=== PATIENT | male | born 1960 | race Caucasian/White ===

== ENCOUNTER 2024-12-05 07:08 | Inpatient (IN) | payer BC ==
[~2024-12-05] VITALS: Ht 172.7 cm; Wt 90.9 kg
--- NOTE | 2024-12-05 07:23 | ELECTROCARDIOGRAPH REPORT ---
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
--- NOTE | 2024-12-05 07:40 | Physician Documentation ---
History of Present Illness General Chief Complaint: Irregular Heartbeat Stated Complaint: AFIB Time Seen by MD: 07:39 History of Present Illness Initial Comments The patient is a 64-year-old male presents to the emergency department with weakness and shortness of breath over last five days. Patient states he has also had palpitations. He was informed a week ago that is gone into atrial fibrillation. Patient states he has a heart attack one year ago and had two stents placed. He states he has a loop recorder and he was called by Dr. Claire on Saturday and told he was in atrial fibrillation. The patient states he started Eliquis on Saturday of this week. The patient presents to the emergency room today with a complaint of shortness of breath and weakness. He d enies any chest pain. Patient denies any fevers chills nausea or vomiting. Patient denies any history of atrial fibrillation. Medication Reconciliation Allergies: Coded Allergies: ibuprofen (Verified Allergy, Unknown, 12/05/24) Scheduled Apixaban (Eliquis), 1 TAB PO BID, (Reported) Aspirin (Aspirin), 1 TAB PO DAILY, (Reported) Atorvastatin Calcium (Atorvastatin Calcium), 1 TAB PO DAILY, (Reported) Carvedilol (Carvedilol), 1 TAB PO BID, (Reported) Escitalopram Oxalate (Escitalopram Oxalate), 1 TAB PO DAILY, (Reported) Evolocumab (Repatha Sureclick), SQ Q2W, (Reported) Spironolactone (Aldactone), 1 TAB PO DAILY, (Reported) Scheduled PRN Zolpidem Tartrate (Zolpidem Tartrate), 1 TAB PO HS PRN for insomnia, (Reported) Past Medical History Past Medical History: Atrial Fibrillation, Coronary Artery Disease Review of Systems All Other Systems at this time: Reviewed and Negative Physical Exam Physical Exam Vital Signs: Temperature: 98.4, Heart Rate: 143, Respiratory Rate: 18, BP: 164/143, Pulse Oximetry: 94, Weight: 90.910 Oxygen Flow Rate: 0 Physical Exam VITALS: Reviewed and as above. GENERAL: Alert, no apparent distress. HEENT: Normocephalic, atraumatic, PERRL, EOMI, dry mucosa, no erythema RESPIRATORY: Lungs clear, normal breath sounds, no respiratory distress. CHEST: No accessory muscle use, no retractions CV: Tachycardic rate and rhythm irregularly irregular, no edema, no murmur, No: JVD GI: Soft, non-tender, bowels sounds present, no rebound, guarding, or rigidity BACK: No CVA tenderness, or swelling MUSCULOSKELETAL: No deformities, no edema SKIN: Warm and dry, no rash NEURO: Oriented x4, No motor or sensory deficit PSYCH: Normal mood and affect, no agitation Progress Results/Orders Results/Orders Orders - DAGOBERTO VALENTE MD Chest,Single View (12/05/24 07:21) Monitor (12/05/24 07:21) Saline Lock (12/05/24 07:21) Oxygen (12/05/24 07:21) Page Hospitalist (12/05/24 ) Completed Orders - DAGOBERTO VALENTE MD Chest,Single View (12/05/24 07:21) Cbc/Diff (12/05/24 07:21) BMP (12/05/24 07:21) PBNP (12/05/24 07:21) Electrocardiogram (12/05/24 07:21) Hs Troponin I W Calculations (12/05/24 07:21) Hs Troponin I W Calculations (12/05/24 09:21) Hs Troponin I W Calculations (12/05/24 10:21) Diltiazem Iv (Cardizem Iv 5mg/Ml Inj.) (12/05/24 07:55) Magnesium Sulf-Water 2g/50ml (Magnesium (12/05/24 07:55) Diltiazem Tablet (Cardizem Tablet) (12/05/24 08:00) Diltiazem Tablet (Cardizem Tablet) (12/05/24 08:40) Normal Saline 500ml Iv Soln (Sodium Chlo (12/05/24 08:40) Diltiazem-Ns 100mg/100ml (Cardizem-Ns 10 (12/05/24 09:35) Hgb A1c (12/05/24 07:28) MG (12/05/24 07:28) PHOS (12/05/24 07:28) TSH (12/05/24 07:28) Vital Signs 12/05/24 12/05/24 12/05/24 12/05/24 07:21 07:37 07:45 08:00 Temp 98.4 Pulse 143 122 127 Resp 18 16 18 B/P (MAP) 164/143 96/66 (76) 94/51 Pulse Ox 94 O2 Flow Rate 0 12/05/24 12/05/24 12/05/24 12/05/24 08:15 08:55 09:35 09:55 Temp 98.4 Pulse 91 82 116 101 Resp 19 16 16 B/P (MAP) 93/57 (69) 90/61 (71) 92/76 98/73 (81) Pulse Ox 93 92 98 O2 Flow Rate 0 0 0 Laboratory Tests Test 12/05/24 07:28 12/05/24 08:53 White Blood Count 13.2 H Red Blood Count 5.63 Hemoglobin 17.9 Hematocrit 53.9 H Mean Corpuscular Volume 95.8 Mean Corpuscular Hemoglobin 31.9 H Mean Corpuscular Hemoglobin Concent 33.3 Red Cell Distribution Width 14.7 H Platelet Count 211 Mean Platelet Volume 9.9 Neutrophils (%) (Auto) 73.6 Lymphocytes (%) (Auto) 15.3 L Monocytes (%) (Auto) 10.0 Eosinophils (%) (Auto) 0.5 Basophils (%) (Auto) 0.6 Neutrophils # (Auto) 9.7 H Lymphocytes # (Auto) 2.0 Monocytes # (Auto) 1.3 H Eosinophils # (Auto) 0.1 Basophils # (Auto) 0.1 CBC Comment Sodium Level 136 Potassium Level 4.7 Chloride Level 105 Carbon Dioxide Level 25.3 Anion Gap 6 L Blood Urea Nitrogen 21 H Creatinine 1.49 H Estimated GFR/1.73 m2 47 BUN/Creatinine Ratio 14.1 Glucose Level 96 Hemoglobin A1c 5.0 Calcium Level 8.4 L Phosphorus Level 2.8 Magnesium Level 2.2 Troponin I High Sensitivity 25 23 Pro-B-Type Natriuretic Peptide 4534 H Albumin 3.3 L Thyroid Stimulating Hormone (TSH) 7.09 H Chemistry Comments Troponin I High Sens Percent Delta 8 Troponin I Hi Sens Absolute Change -2 EKG/XRAY/CT/US/VASC/MRI Chest X-Ray : Additional Comments Patient: MARIXA DIAZ Medical Record: [id number] [facility] : 1960, Age: 64 Sex: Male Location: ER Patient Status: REG ER Service Date/Time: 12/05/24720 Ordering Physician: DAGOBERTO VALENTE MD Exam: CHEST,SINGLE VIEW CHEST RADIOGRAPH Indication: CP Technique: DI CHEST,SINGLE VIEW COMPARISON: None FINDINGS: The cardiac silhouette is enlarged. The lungs demonstrate bilateral patchy airspace opacities. The pulmonary vasculature is prominent. Small left pleural effusion. There is no pneumothorax. Cardiac recording device. IMPRESSION: Cardiomegaly with pulmonary vascular congestion and bilateral patchy airspace opacities. Small left pleural effusion. Electronically Signed by:SONIA LORENZO MD Date & Time: 12/05/24746 Dictated by: SONIA LORENZO MD Dictation date and time: 12/05/24730 Primary Care Provider: NO PRIMARY CARE PROVIDER cc: DAGOBERTO VALENTE MD ~ Medical Decision Making Findings The the patient's EKG was interpreted as atrial fibrillation with a rate of 151 with a normal axis and Q-waves in V1 through V five with nonspecific ST abnormalities impression is an abnormal EKG. The patient presented with a week's worth of atrial fibrillation the patient has a rapid atrial fibrillation he was started on Cardizem his blood pressure was 90 systolic given this finding I gave the patient some IV fluids we continued to struggle with low blood pre ssures and limited success with rate control the patient was discussed with the care transitions manager who has recommended loading the patient with amiodarone and also digoxin. The patient does have congestive changes on his chest x-ray consistent with pulmonary edema related to his atrial fibrillation the patient does have a history of would sounds like an apical IN in the past. The patient did require critical care time the patient will be admitted to the hospitalist case has been discussed with the hospitalist. Prior hospitalizations have been reviewed the pulse oximetry was interpreted as abnormal and low and is cardiac 100 was interpreted as atrial fibrillation Departure Admitted to Inpatient Unit: yes, to hospitalist Impression: Primary Impression: Atrial fibrillation Qualified Codes: I48.19 - Other persistent atrial fibrillation Referrals: NO PRIMARY CARE PROVIDER (PCP) Critical Care Note Total Time (mins): 90 Critical Care Note The very real possibility of a deterioration of this patient's condition required the highest level of my preparedness for sudden, emergent intervention. I provided critical care services, which included medication orders, frequent reevaluations of the patient's condition and response to treatment, ordering and reviewing test results, and discussing the case with various consultants. Excludes time spent performing separately billable procedures. The critical care time associated with the care of the patient was 90 minutes. Signature Scribe Signature: No scribe Attestation: The note accurately reflects work and decisions made by me.Dagoberto Valente MD 12/07/24 03:46 DAGOBERTO VALENTE MD Dec 05, 2024 07:40
--- NOTE | 2024-12-05 07:47 | RADIOLOGY REPORT ---
CHEST RADIOGRAPH Indication: CP Technique: DI CHEST,SINGLE VIEW COMPARISON: None FINDINGS: The cardiac silhouette is enlarged. The lungs demonstrate bilateral patchy airspace opacities. The pu lmonary vasculature is prominent. Small left pleural effusion. There is no pneumothorax. Cardiac ernie rding device. IMPRESSION: Cardiomegaly with pulmonary vascular congestion and bilateral patchy airspace opacities. Small left pleural effusion.
[2024-12-05 07:53] LABS: MEAN PLATELET VOLUME 9.9 FL (7.4-10.4); RED CELL DISTRIBUTION WIDTH 14.7 % (11.5-14.5)
[2024-12-05] MEDS: diltiazem 5mg/ml 5ml inj. IV ONE (08:00)
[2024-12-05] MEDS: magnesium sulf-water 2g/50mL 50 ML IV ONE (08:00)
[2024-12-05] MEDS ORDERED: diltiazem 30mg tablet PO ONE (08:00)
[2024-12-05 08:15] LABS: CREATININE 1.49 MG/DL (0.60-1.10); PRO BRAIN NATRIURETIC PEPTIDE 4534 PG/ML (0-125); TOTAL CARBON DIOXIDE 25.3 MMOL/L (24-32); eCRCL 48 ML/MIN; eGFR 47 ML/MIN
[2024-12-05] MEDS: diltiazem 30mg tablet PO ONE ×2 (08:40→11:19)
[2024-12-05] MEDS: normal saline 500ml IV soln 500 ML IV SCH (08:52)
[2024-12-05] MEDS: diltiazem-NS 100mg/100ml 100 ML IV ONE (09:35)
[2024-12-05] MEDS ORDERED: SPIR25TA PO (10:17)
[2024-12-05] MEDS ORDERED: APIX5TAB3 PO (10:17)
[2024-12-05] MEDS ORDERED: ZOLP5TAB8 PO (10:17)
[2024-12-05] MEDS ORDERED: ASPI-1265 PO (10:17)
[2024-12-05] MEDS ORDERED: ATOR40TA72 PO (10:17)
[2024-12-05] MEDS ORDERED: EVOL140P3 SQ (10:17)
[2024-12-05] MEDS ORDERED: ESCI-8 PO (10:17)
[2024-12-05] MEDS ORDERED: CARV12.53 PO (10:17)
[2024-12-05] MEDS ORDERED: magnesium hydroxide 30ml (MOM) UD suspension PO PRN (12:00)
[2024-12-05] MEDS ORDERED: magnesium Cl slow-release 64mg tablet PO PRN (12:00)
[2024-12-05] MEDS ORDERED: ondansetron/PF 4mg/2ml inj IV PRN (12:00)
[2024-12-05] MEDS ORDERED: magnesium sulf-water 4G/100mL 100 ML IV PRN (12:00)
[2024-12-05] MEDS ORDERED: potassium Cl 20 mEq SR tablet PO PRN ×2 (12:00)
[2024-12-05] MEDS ORDERED: mag hydrox/Alum hydrox/simeth 30ml oral suspension PO PRN (12:00)
[2024-12-05] MEDS ORDERED: potassium Cl 40MEQ/1/2NS 520ml 520 ML IV PRN (12:00)
[2024-12-05] MEDS ORDERED: magnesium sulf-water 2g/50mL 50 ML IV PRN (12:00)
[2024-12-05] MEDS: PERFLUTREN PROTEIN-A MICROSPHR (Optison) 0.22 MG/ML 3ML VIAL IV ONE (12:35)
[2024-12-05 12:36] LABS: PHOSPHORUS 2.8 MG/DL (2.3-4.5)
[2024-12-05 12:38] LABS: APTT 26 SECONDS (22-32); INR 1.1 INR
--- NOTE | 2024-12-05 12:40 | ELECTROCARDIOGRAPH REPORT ---
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
[2024-12-05] MEDS: CefTRIAXone/D5W-Rocephin 1gm 50 ML IV SCH (13:46)
[2024-12-05] MEDS: azithromycin/NS 500mg/250ml 250 ML IV SCH (14:37)
[2024-12-05] MEDS ORDERED: metoprolol tartrate 1mg/ml inj IV PRN (15:45)
[2024-12-05] MEDS ORDERED: aminophylline 250mg/10ml inj. IV PRN (15:45)
[2024-12-05] MEDS ORDERED: regadenoson 0.4mg/5ml syringe IV PRN (15:45)
[2024-12-05] MEDS: amiodarone 150mg/dext, iso-os 100 ML IV ONE ×2 (16:15→19:13)
[2024-12-05] MEDS: amiodarone/D5 360MG/200ML BAG 200 ML IV SCH (16:43)
[2024-12-05 18:43] LABS: LEUKOCYTE ESTERASE ,URINE NEGATIVE (Neg); NITRITES, URINE NEGATIVE (Neg); OCCULT BLOOD,URINE NEGATIVE (Neg)
[2024-12-05 18:50] LABS: UA COLLECTION TYPE URINAL
[2024-12-05 18:51] LABS: MUCUS STRANDS MANY /LPF (Neg); SQUAMOUS EPITHELIAL CELL,UR NONE SEEN /LPF (FEW)
[2024-12-05] MEDS: digoxin 250mcg/ml 2ml ampule IV ONE (19:03)
--- NOTE | 2024-12-05 19:13 | HISTORY AND PHYSICAL-Residence ---
History & Physical Providers to CC Resident Creating Document: TRAN ROSENBAUM, RES ~ History of Present Illness Reason for Admit\Complaint: Atrial fibrillation History of Present Illness A 64 years old male patient with past medical history of atrial fibrillation, CAD, obstructive sleep apnea presented to ED with chief complaints of chest discomfort, weakness and fatigue that started today morning when he was resting at the home. He states that he has a loop recorder and he was called by Dr. Claire's office on Saturday and told he was in atrial fibrillation. He started taking Eliquis from past 4 days. Patient denies chest pain, shortness of breath, dizziness, syncope, abdominal pain, loss of consciousness, arthralgias, fevers, chills, nausea, vomitings. Allergies: Coded Allergies: ibuprofen (Verified Allergy, Unknown, 12/05/24) Home Medications Home Medications Active Reported Repatha Sureclick (Evolocumab) 140 Mg/Ml Pen.injctr SQ Q2W Aspirin 81 Mg Tab.chew 1 Tab PO DAILY Escitalopram Oxalate 10 Mg Tablet 1 Tab PO DAILY Zolpidem Tartrate 5 Mg Tablet 1 Tab PO HS PRN Eliquis (Apixaban) 5 Mg Tablet 1 Tab PO BID Aldactone (Spironolactone) 25 Mg Tablet 1 Tab PO DAILY 30 Days Carvedilol 12.5 Mg Tablet 1 Tab PO BID Atorvastatin Calcium 40 Mg Tablet 1 Tab PO DAILY Past Medical History Past Medical History Atrial fibrillation Coronary artery disease Obstructive sleep apnea Past Surgical History Surgical History Comment coronary artery disease in 2023 2 (stents) Past Social History Social History Comment He drinks 1 glass of wine occasionally, Nonsmoker Denies any recreational drug abuse Independent of ADL Retired, lives with at home His pulmonary care nurse is Dr. Dakotah DE LA CRUZ All Other Systems: Reviewed and Negative ROS Constitutional: No fever, chills, dizziness, weight gain or loss Eyes: No pain, erythema, discharge, blurring of vision ENT: No sore throat, epistaxis, tinnitus Cardiovascular: Reports chest discomfort, No chest pain, palpitations, syncope, lower extremity edema, paroxysmal nocturnal dyspnea Respiratory: No Shortness of breath and cough, No hemoptysis. Gastrointestinal: Reports Abdominal pain, no nausea and vomiting. Normal appetite. No constipation,diarrhea, hematemesis, melena or fresh blood Musculoskeletal:No chronmic edema. Integumentary: No change in skin, hair, nails. No swelling, bruising, abrasions Neurologic: No weakness,No headache, neck pain, numbness or tingling of the extremities, Psychiatric: No delusions, depression, loss of interest in normal activity or change in sleep pattern, hallucinations, suicidal ideations Endocrine: Reports fatigue and weakness, No polydipsia, polyuria, change in appetite, heat or cold intolerance, sweating, dry skin Hematological: No bleeding, petechiae, bruising Allergies: No asthma or urticaria Exam Vitals: Vital Signs Date Time Temp Pulse Resp B/P (MAP) Pulse Ox O2 Delivery O2 Flow Rate FiO2 12/05/24 18:32 90 Nasal Cannula* 3 32 12/05/24 17:56 125 16 110/79 (89) 12/05/24 08:15 98.4 General: Awake , alert and oriented to time,place, person, cachectic, in mild distress HEENT: Atraumatic, normocephalic, PEERLA, anicteric sclera ; pink conjunctiva, dry mucous membranes Neck: Trachea midline. Supple, normal range of motion, no JVD Cardiac: Tachycardia, irregularly irregular rhythm, S1, S2 heard,, no murmurs heard. Chest and Respiratory: Equal breath sounds bilaterally, no tachypnea, wheezing and ronchi are present.Chest wall is symmetric and without deformity. Abdomen: Abdomen soft , nondistended, no pain or tenderness, Patricio's sign negative. normal bowel sounds x4 quadrant, normoactive, no hepatosplenomegaly MSK: Range of motion of all extremities are normal. There is no joint pain or joint swelling or joint erythema. There is no muscle pain or tenderness or swelling. Extremities: warm, well-perfused, No cyanosis, clubbing or edema, 2+ pulses felt Neurological: Speech is clear, alert, and oriented x 4. No sensory or motor deficits. Cranial nerves II-XII intact. Skin: Warm and dry Psychiatry: Affect and mood are normal Diagnostic Data Last Recorded Lab Results: 12/05/24 0712/05/24 0728 Diagnostic Data: Laboratory Tests Test 12/05/24 12:14 Prothrombin Time 10.9 SECONDS (9.0-12.0) INR International Normalized Ratio 1.1 INR Activated Partial Thromboplast Time 26 SECONDS (22-32) D-Dimer 0.30 MG/L FEU (0-0.50) D-Dimer Comment Coagulation Comments Advance Care Planning Advanced Care plannin - 30 Minutes Additional Plan Atrial fibrillation with RVR - EKG showed atrial fibrillation with rate of > 140 in V1-V5 leads. - elevated BNP levels, troponin levels are normal -D-dimer levels are normal - planned for Lexiscan tomorrow, NPO after midnight - ordered echocardiogram - Initially treated with digoxin and IV Cardizem in the ED. - started on IV amiodarone drip at the rate of 600 mL/hour over 10 minutes and continue IV amiodarone 200 mL - started on Eliquis 5 mg p.o. b.i.d. Possible community-acquired pneumonia Covering Gram-positive, Gram-negative, atypical organisms -Chest x-ray showed Cardiomegaly with pulmonary vascular congestion and bilateral patchy airspace opacities -CBC showed mild leukocytosis, lactic acid and procalcitonin are normal - Started on IV ceftriaxone 1 g daily - Started on IV azithromycin 500 mg daily -125 mg of IV methylprednisolone stat dose was given and continue on prednisone 40 mg p.o. once daily Acute kidney injury -Creatinine level is elevated -Follow-up with urine lytes -Monitor RFts closely -Initially treated with 500 mL IV normal saline in the ED Coronary artery disease s/p 2 stents in 2023 Continue on Eliquis 5 mg p.o. b.i.d. daily Follow up with lipid profile Possible hypothyroidism TSH levels are elevated Follow up with free T4 levels Obstructive sleep apnea Follow up with outpatient management Code status: Full code DVT prophylaxis: Eliquis 5 mg b.i.d. Diet: Heart healthy diet Prognosis: Guarded Disposition: Patient was admitted with atrial fibrillation with RVR and hypotension. Continue telemetry monitoring. Taj Rosenbaum MD Internal Medicine Resident, PGY 1 Date of Service: Dec 05, 2024 Billing Provider: MELODY DOMÍNGUEZ MD,TRAN VALDES, RES Dec 05, 2024 19:13
[2024-12-05 19:29] LABS: URINE AMPHETAMINE SCREEN NEGATIVE (Neg); URINE BARBITUATE SCREEN NEGATIVE (Neg); URINE BENZODIAZEPINES SCREEN NEGATIVE (Neg); URINE CANNABINOID SCREEN NEGATIVE (Neg); URINE COCAINE SCREEN NEGATIVE (Neg); URINE METHADONE SCREEN NEGATIVE (Neg); URINE OPIATE SCREEN NEGATIVE (Neg); URINE PHENCYCLIDINE SCREEN NEGATIVE (Neg)
[2024-12-05] MEDS ORDERED: heparin, porcine 5000 units/ml vial SQ SCH (20:00)
[2024-12-05] MEDS: K and/or MAG REPLACEMENT MC SCH (20:24)
[2024-12-05] MEDS: docusate sod 100mg capsule PO SCH (21:00)
[2024-12-05] MEDS: carvedilol 6.25mg tablet PO SCH (22:42)
[2024-12-05 23:57] VITALS: BP 105/68; PULSE 108; TEMP 97.9; O2SAT 93
[2024-12-06] VITALS (27 sets, daily range): BP systolic 87–131; BP diastolic 47–98; PULSE 68–123; RESP 16–36; TEMP 97.1–97.8; O2SAT 84–97
[2024-12-06 06:30] LABS: MEAN PLATELET VOLUME 10.5 FL (7.4-10.4); RED CELL DISTRIBUTION WIDTH 14.6 % (11.5-14.5)
[2024-12-06 06:59] LABS: CHOL/HDL RATIO 1.4 (0.00-4.99); CREATININE 1.44 MG/DL (0.60-1.10); LDL CHOLESTEROL 12 MG/DL (50-100); TOTAL CARBON DIOXIDE 25.2 MMOL/L (24-32); eCRCL 50 ML/MIN; eGFR 49 ML/MIN
[2024-12-06] MEDS ORDERED: metoprolol tartrate 1mg/ml inj IV PRN (10:05)
[2024-12-06] MEDS: amiodarone 150mg/dext, iso-os 100 ML IV ONE (10:23)
[2024-12-06] MEDS: normal saline 500ml IV soln 500 ML IV SCH (10:38)
[2024-12-06] MEDS: metoprolol tartrate 1mg/ml inj IV PRN (10:48)
[2024-12-06] MEDS ORDERED: diltiazem-D5W 125mg/125ml 125 ML IV SCH (10:50)
[2024-12-06] MEDS: amiodarone/D5 360MG/200ML BAG 200 ML IV SCH (10:57)
[2024-12-06] MEDS: aspirin 81mg, enteric-coated 1 TAB TABLET.DR PO ONE (11:15)
[2024-12-06] MEDS ORDERED: diltiazem-NS 100mg/100ml 100 ML IV SCH (11:45)
[2024-12-06] MEDS: diltiazem-NS 100mg/100ml 100 ML IV SCH (12:55)
[2024-12-06] MEDS: MIDAZolam 1mg/ml 10ml vial IV ONE (13:25)
[2024-12-06] MEDS: morphine 10mg/ml inj. IV ONE (13:26)
--- NOTE | 2024-12-06 14:09 | CONSULTATION REPORT - RESIDENT ---
Consult Providers to CC Resident Creating Document: MAMADOU ROBLESDESIRE History of Present Illness Reason for Admit\Complaint: AFib with RVR History of Present Illness A 64 years old male patient with past medical history of atrial fibrillation, CAD status post PTCA with 2 stents(in November 2023), obstructive sleep apnea presented to ED with chief complaints of chest discomfort. He endorses chest discomfort which was started on yesterday morning associated with generalized weakness , decreased energy levels. He endorses that he has a loop recorder and he was called by Dr. Claire's office on Saturday and told he was in atrial fibrillation. He started taking Eliquis from past 4 days. Patient denies chest pain, shortness of breath, dizziness, syncope, abdominal pain, loss of consciousness, arthralgias, fevers, chills, nausea, vomitings, weakness of limbs, slurring of speech, deviation of angle of mouth, seizures, abdominal distention. Allergies: Coded Allergies: ibuprofen (Verified Allergy, Unknown, 12/05/24) Home Medications Home Medications Active Reported Repatha Sureclick (Evolocumab) 140 Mg/Ml Pen.injctr SQ Q2W Aspirin 81 Mg Tab.chew 1 Tab PO DAILY Escitalopram Oxalate 10 Mg Tablet 1 Tab PO DAILY Zolpidem Tartrate 5 Mg Tablet 1 Tab PO HS PRN Eliquis (Apixaban) 5 Mg Tablet 1 Tab PO BID Aldactone (Spironolactone) 25 Mg Tablet 1 Tab PO DAILY 30 Days Carvedilol 12.5 Mg Tablet 1 Tab PO BID Atorvastatin Calcium 40 Mg Tablet 1 Tab PO DAILY Past Medical History Past Medical History Atrial fibrillation Coronary artery disease Obstructive sleep apnea Past Surgical History Surgical History Comment Coronary artery disease in 2023 with PTCA and 2 stents Past Social History Social History Comment He drinks 1 glass of wine occasionally, Nonsmoker Denies any recreational drug abuse Independent of ADL Retired, lives with at home 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 Dakotah DE LA CRUZ Constitutional: No fever, chills, dizziness, weight gain or loss Eyes: No pain, erythema, discharge, blurring of vision ENT: No sore throat, epistaxis, tinnitus Cardiovascular: Reports chest discomfort, No chest pain, palpitations, syncope, lower extremity edema, paroxysmal nocturnal dyspnea Respiratory: No Shortness of breath and cough, No hemoptysis. Gastrointestinal: Reports Abdominal pain, no nausea and vomiting. Normal appetite. No constipation,diarrhea, hematemesis, melena or fresh blood Musculoskeletal:No chronmic edema. Integumentary: No change in skin, hair, nails. No swelling, bruising, abrasions Neurologic: No weakness,No headache, neck pain, numbness or tingling of the extremities, Psychiatric: No delusions, depression, loss of interest in normal activity or change in sleep pattern, hallucinations, suicidal ideations Endocrine: Reports fatigue and weakness, No polydipsia, polyuria, change in appetite, heat or cold intolerance, sweating, dry skin Hematological: No bleeding, petechiae, bruising Allergies: No asthma or urticaria Exam Vitals: Vital Signs Date Time Temp Pulse Resp B/P (MAP) Pulse Ox O2 Delivery O2 Flow Rate FiO2 12/06/24 13:14 97.6 123 16 12/06/24 12:55 100/78 12/06/24 06:00 94 Nasal Cannula 4.0 12/05/24 21:09 50 General: Awake , alert and oriented to time,place, person, cachectic, in mild distress HEENT: Atraumatic, normocephalic, PEERLA, anicteric sclera ; pink conjunctiva, dry mucous membranes Neck: Trachea midline. Supple, normal range of motion, no JVD Cardiac: Tachycardia, irregularly irregular rhythm, S1, S2 heard,, no murmurs heard. Chest and Respiratory: Equal breath sounds bilaterally, no tachypnea, wheezing and ronchi are present.Chest wall is symmetric and without deformity. Abdomen: Abdomen soft , nondistended, no pain or tenderness, Patricio's sign negative. normal bowel sounds x4 quadrant, normoactive, no hepatosplenomegaly MSK: Range of motion of all extremities are normal. There is no joint pain or joint swelling or joint erythema. There is no muscle pain or tenderness or swelling. Extremities: warm, well-perfused, No cyanosis, clubbing or edema, 2+ pulses felt Neurological: Speech is clear, alert, and oriented x 4. No sensory or motor deficits. Cranial nerves II-XII intact. Skin: Warm and dry Psychiatry: Affect and mood are normal Diagnostic Data Last Recorded Lab Results: 12/06/24 0542 12/06/24 0542 Diagnostic Data: Laboratory Tests Test 12/05/24 12:14 Prothrombin Time 10.9 SECONDS (9.0-12.0) INR International Normalized Ratio 1.1 INR Activated Partial Thromboplast Time 26 SECONDS (22-32) D-Dimer 0.30 MG/L FEU (0-0.50) D-Dimer Comment Coagulation Comments Additional Plan Atrial fibrillation with RVR Status post cardioversion Acute systolic Heart failure with reduced ejection fraction of 40-45% EKG showed atrial fibrillation with rate of > 140 in V1-V5 leads. Elevated BNP levels, troponin levels are normal,D-dimer levels are normal Echocardiogram showed LEFT VENTRICLE Normal LV size and wall thickness. Overall systolic function is moderately reduced. Multisegmental wall motion abnormalities. LVEF is 40-45%. RIGHT VENTRICLE RV is normal size and function. ATRIA LA appears severely dilated. RA appears mildly dilated. AORTIC VALVE Trileaflet AV appears moderately sclerotic without stenosis. Trace insufficiency. MITRAL VALVE Mild MV annular calcification without stenosis. Moderate regurgitation. TRICUSPID VALVE TV appears structurally normal with mild regurgitation. PULMONIC VALVE Normal PV without stenosis, physiologic insufficiency. GREAT VESSELS Aortic root is normal in size. Ascending aorta is normal in size. PERICARDIUM Normal pericardium. No effusion. Initially treated with digoxin and IV Cardizem in the ED but could not able to control with the. Recommended to continue amiodarone drip at 1 milligram/minute, IV Cardizem drip Recommended to start metoprolol 5 mg IV PRN heart rate is more than 120 q.1h started on Eliquis 5 mg p.o. b.i.d. Underwent cardioversion in the afternoon. Continue carvedilol 6.25 mg p.o. b.i.d and continue the amiodarone drip for today and then switch to amiodarone p.o. 400 mg p.o. b.i.d. Hold diltiazem drip because of the soft blood pressures. Repeat proBNP in the morning Coronary artery disease s/p 2 stents in 2023 Completed the course of dual antiplatelet agent on November 26 Continue on Eliquis 5 mg p.o. b.i.d. daily Follow up with lipid profile Possible community-acquired pneumonia Covering Gram-positive, Gram-negative, atypical organisms Acute kidney injury Obstructive sleep apnea Plan per hospitalist team for above problem Disposition: Continue amiodarone drip for today and then switch to p.o. amiodarone 400 mg b.i.d. and Coreg 6.25 mg p.o. b.i.d. Mamadou Robles IM resident, PGY 2 Cardiology Patient seen and examined by Dr. Angela ROMERO. After trying to control his ventricular response with multiple agents including IV amiodarone, digoxin and beta blockers and calcium channel blockers it was decided to cardiovert the patient after ARNEL in view of borderline blood pressure. Inability to tolerate rate control agents. Subsequently patient underwent ARNEL which did not reveal any left atrial or left atrial appendage clot. Patient cardioverted to normal sinus rhythm 200 joules x1 to and. Recommend transitioning from IV amiodarone to p.o. amiodarone 400 mg p.o. b.i.d.. Stop IV Cardizem drip. Continue carvedilol 6.25 mg p.o. b.i.d. and Eliquis. Check with Dr. Claire in a.m. regarding amiodarone tapering schedule. Patient counseled on diet weight loss and exercise program. Sepsis Screening Reassessment Date: Dec 06, 2024 Date of Service: Dec 06, 2024 Billing Provider: PAULA CHAVEZ MD, VENKATESH, DESIRE Dec 06, 2024 14:09 PAULA CHAVEZ MD Dec 06, 2024 17:19
--- NOTE | 2024-12-06 14:50 | PROGRESS NOTE- Residence ---
Progress Note - Resident Providers to CC Resident Creating Document: TRAN ROSENBAUM RES ~ Antibiotic Timeout Antibiotic Ordered?: Yes Subjective Patient was seen and examined at bedside. Patient has chest discomfort and shortness of Breath. Patient denies dizziness, syncope, altered level of consciousness. Patient is planned for cardioversion due to AFib with RVR. Objective Vital Signs Date Time Temp Pulse Resp B/P (MAP) Pulse Ox O2 Delivery O2 Flow Rate FiO2 12/06/24 14:26 77 20 107/79 93 Mask 12/06/24 14:00 6.0 12/06/24 13:14 97.6 12/06/24 08:00 32 Result Diagram: 12/06/24 0542 12/06/24 0542 Awake , alert and oriented to time,place, person, cachectic, in mild distress HEENT: Atraumatic, normocephalic, PEERLA, anicteric sclera ; pink conjunctiva, dry mucous membranes Neck: Trachea midline. Supple, normal range of motion, no JVD Cardiac: Tachycardia, irregularly irregular rhythm, S1, S2 heard,, no murmurs heard. Chest and Respiratory: Equal breath sounds bilaterally, no tachypnea, wheezing and ronchi are present.Chest wall is symmetric and without deformity. Abdomen: Abdomen soft , nondistended, no pain or tenderness, Patricio's sign negative. normal bowel sounds x4 quadrant, normoactive, no hepatosplenomegaly MSK: Range of motion of all extremities are normal. There is no joint pain or joint swelling or joint erythema. There is no muscle pain or tenderness or swelling. Extremities: warm, well-perfused, No cyanosis, clubbing or edema, 2+ pulses felt Neurological: Speech is clear, alert, and oriented x 4. No sensory or motor deficits. Cranial nerves II-XII intact. Skin: Warm and dry Psychiatry: Affect and mood are normal Coagulation Studies Laboratory Tests Test 12/05/24 12:14 Prothrombin Time 10.9 SECONDS (9.0-12.0) INR International Normalized Ratio 1.1 INR Activated Partial Thromboplast Time 26 SECONDS (22-32) D-Dimer 0.30 MG/L FEU (0-0.50) D-Dimer Comment Coagulation Comments Assessment Assessment A 64 years old male patient is admitted with AFib with RVR status post cardioversion and acute systolic heart failure. Plan Plan Atrial fibrillation with RVR Status post cardioversion Acute systolic Heart failure with reduced ejection fraction of 40-45% -telemetry monitoring showed atrial fibrillation with rate of greater than 130bpm - elevated BNP levels, troponin levels are normal, D-dimer levels are normal -Echocardiogram showed Normal LV size and wall thickness. Overall systolic function is moderately reduced. Multisegmental wall motion abnormalities. LVEF is 40-45%. - started on Eliquis 5 mg p.o. b.i.d. -Initially treated with digoxin and IV Cardizem in the ED but could not able to control rate -Recommended to continue amiodarone drip at 1 milligram/minute, IV Cardizem drip -Recommended to start metoprolol 5 mg IV PRN heart rate is more than 120 q.1h - contact Dr. Claire for Lexiscan tomorrow morning As per Dr. Willson's recommendation: Underwent cardioversion in the afternoon. Continue carvedilol 6.25 mg p.o. b.i.d and continue the amiodarone drip for today and then switch to amiodarone p.o. 400 mg p.o. b.i.d. Hold diltiazem drip because of the soft blood pressures. -blood pressures are on soft side, initially 500 mL IV normal saline bolus was given and started on IV normal saline 100 mL/hour Repeat proBNP in the morning Coronary artery disease s/p 2 stents in 2023 Continue on Eliquis 5 mg p.o. b.i.d. daily Completed the course of dual antiplatelet agents Possible community-acquired pneumonia Covering Gram-positive, Gram-negative, atypical organisms -Chest x-ray showed Cardiomegaly with pulmonary vascular congestion and bilateral patchy airspace opacities -CBC showed mild leukocytosis, lactic acid and procalcitonin are normal - on IV ceftriaxone 1 g daily - on IV azithromycin 500 mg daily -125 mg of IV methylprednisolone stat dose was given and started on IV methylprednisolone 62.5 mg q.8h -nebulization with DuoNeb ipratropium/albuterol q.4h Acute kidney injury -Creatinine level is elevated -Follow-up with urine lytes -Monitor RFts closely -Initially treated with 500 mL IV normal saline in the ED Subclinical hypothyroidism TSH levels are elevated free T4 levels is normal. Obstructive sleep apnea Follow up with outpatient management Code status: Full code DVT prophylaxis: Eliquis 5 mg b.i.d. Diet: Heart healthy diet Prognosis: Guarded Critical care time spent: Greater than 35 minutes Disposition: Patient underwent cardioversion for atrial fibrillation with RVR .Continue amiodarone drip for today and then switch to p.o. amiodarone 400 mg b.i.d. and Coreg 6.25 mg p.o. b.i.d. Continue telemetry monitoring. Taj Rosenbaum MD Internal Medicine Resident, PGY 1 Date of Service: Dec 06, 2024 Billing Provider: MELODY DOMÍNGUEZ MD,TRAN VALDES, RES Dec 06, 2024 14:50
[2024-12-06] MEDS: ipratropium/albuterol 3ml nebule NEB PRN (16:18)
[2024-12-06] MEDS: normal saline 500ml IV soln 500 ML IV ONE (16:31)
[2024-12-06 17:18] LABS: ABG BASE EXCESS -5.7 mmol/L (-2.0-3.0); ABG HCO3 19.9 mmol/L (21.0-28.0); ABG OXYGEN SATURATION 90.4 % (94.0-98.0); ABG PCO2 (T) 39.6 mmHg (35.0-48.0); ABG PH (T) 7.318 (7.350-7.450); ABG PO2 (T) 67.9 mmHg (83.0-108.0); ALLEN'S TEST POSITIVE; FCOHb 0.3 % (0.5-1.5); FHHb 9.6 % (0.0-5.0); FIO2 100.0 mmHg/%; FLOW 35 L/min; FMetHb 0.2 % (0.0-1.5); FO2Hb 89.9 % (94.0-98.0); MODE HIGH FLOW; PATIENT TEMPERATURE 37.0; TOTAL HEMOGLOBIN 18.7 G/dl (13.5-17.5)
[2024-12-06] MEDS: normal saline 1000ml 1,000 ML IV SCH ×2 (17:35→17:51)
--- NOTE | 2024-12-06 17:51 | CARDIOLOGY REPORT ---
APPROVED REPORT EXAM: Comprehensive 2D, Doppler, and color-flow Echocardiogram. Patient Location: 3024 A Blood Pressure: 105/82 mmHg Heart Rate: 105-182 bpm Rhythm: ATRIAL FIBRILLATION w/RVR Indications ATRIAL FIBRILLATION CAD, [place] 2023, STENTS X2 LOOP RECORDER Inspector Fabric: Negin Claire MD / Consult: Jarvis Willson MD Previous echo: none available (after hours) 2D Dimensions IVSd 1.3 (0.7-1.1cm) LVDd 4.4 cm PWd 1.0 (0.7-1.1cm) IVSs 1.6 (0.8-1.2cm) LVDs 3.3 (2.5-4.0cm) PWs 1.3 (0.8-1.2cm) LVOT Diameter 2.00 (1.8-2.4cm) LVEF(%) 48.0 (>50%) IVC 19.97 mmFS (%) 24.0 % SV 41.0 ml CO 3.5 L/min M-Mode Dimensions Left Atrium(MM) 5.81 (2.5-4.0cm) IVSd 0.84 (0.7-1.1cm) LVDd 3.26 (4.0-5.6cm) Aortic Root 3.17 (2.2-3.7cm) PWd 1.37 (0.7-1.1cm) Aortic Cusp Exc 2.22 (1.5-2.0cm) IVSs 1.32 cm LVDs 2.63 (2.0-3.8cm) FS (%) 19 % PWs 1.74 cm ESV(Teich) 25.4 ml LVEF(%) 41 (>50%) Aortic Valve AoV Peak Zoltan. 112.6 cm/s AoV VTI 14.7 cm AO Peak GR. 5.1 mmHg AO Mean GR. 3 mmHg LVOT VTI 13.58 cm LVOT Peak Zoltan. 100.2 cm/s TERRY(VTI)/BSA 2.88 cm2/m2 TERRY (VTI) 2.88 cm2 Mitral Valve MV Peak Gr. 10 mmHg MV PHT 52 ms MVA (PHT) 4.23 cm2 MV DVvp602.0 cm/s LEFT VENTRICLE Normal LV size and wall thickness. Overall systolic function is moderately reduced. There is severe h ypokinesia of the anteroseptal wall distal inferior wall. There is moderate LV systolic dysfunction p resent. Overall estimated LVEF is about 40-45%. RIGHT VENTRICLE RV is normal size and function. ATRIA LA appears severely dilated. RA appears mildly dilated. AORTIC VALVE Trileaflet AV appears moderately sclerotic without stenosis. Trace insufficiency. MITRAL VALVE Mild MV annular calcification without stenosis. Moderate regurgitation. TRICUSPID VALVE TV appears structurally normal with mild regurgitation. PULMONIC VALVE Normal PV without stenosis, physiologic insufficiency. GREAT VESSELS Aortic root is normal in size. Ascending aorta is normal in size. PERICARDIUM Normal pericardium. No effusion. Other Information Study Quality: Adequate Conclusion There is moderate LV systolic dysfunction present. Overall estimated LVEF is about 40-45%. Normal LV size and wall thickness. Overall systolic function is moderately reduced. There is severe hypokinesia of the anteroseptal wall distal inferior wall. RV is normal size and function. Mild MV annular calcification without stenosis. Moderate regurgitation. TV appears structurally normal with mild regurgitation. Normal PV without stenosis, physiologic insufficiency. Normal pericardium. No effusion.
--- NOTE | 2024-12-06 17:53 | CARDIOLOGY REPORT ---
APPROVED REPORT EXAM: Limited transesophageal echocardiogram with color flow Doppler and Synchronized Cardioversion. Patient Location: 3024 A Blood Pressure: 87/47 mmHg Heart Rate: 97-122 bpm Rhythm: Atrial Fibrillation Indications Atrial Fibrillation Pre-Cardioversion ARNEL Probe passed by BV. Demetris MD Heating Unit Installer: Negin Claire MD / Consult : BV. Demetris MD Previous echo: 12/06/2024 [facility] EF: 40-45%, sev LA, mod MR, mild TR LEFT VENTRICLE Normal LV size with normal wall thickness. Severe hypokinesia of the distal anteroseptal wall and dis torres inferior wall Moderately reduced systolic function. There is moderate LV systolic dysfunction pr esent. Overall estimated Overall LVEF is about 40-45%. RIGHT VENTRICLE RV is normal size and function. ATRIA Left atrium is severely dilated. Left atrial appendage is visualized in multiple planes and appears n ormal without debris. Right atrium appears mildly dilated. AORTIC VALVE Trileaflet AV appears moderately sclerotic without stenosis. Trace insufficiency. MITRAL VALVE Mild MV annular calcification without stenosis. Moderate regurgitation. TRICUSPID VALVE TV appears structurally normal with mild regurgitation. GREAT VESSELS The aortic root is normal in size. The ascending aorta is normal in size. PERICARDIUM Normal pericardium. No pericardial effusion seen. CONCLUSION There is moderate LV systolic dysfunction present. Overall estimated Overall LVEF is about 40-45%. N ormal LV size with normal wall thickness. Severe hypokinesia of the distal anteroseptal wall and dist al inferior wall Moderately reduced systolic function. RV is normal size and function. Left atrium i s severely dilated. Left atrial appendage is visualized in multiple planes and appears normal without debris. Right atrium appears mildly dilated. Trileaflet AV appears moderately sclerotic without sten osis. Trace insufficiency. Mild MV annular calcification without stenosis. Moderate regurgitation. TV appears structurally normal with mild regurgitation. The aortic root is normal in size. The ascendin g aorta is normal in size. Normal pericardium. No pericardial effusion seen. Conclusion There is moderate LV systolic dysfunction present. Overall estimated Overall LVEF is about 40-45%. Normal LV size with normal wall thickness. Severe hypokinesia of the distal anteroseptal wall and di stal inferior wall Moderately reduced systolic function. RV is normal size and function. Left atrium is severely dilated. Left atrial appendage is visualized in multiple planes and appears n ormal without debris. Right atrium appears mildly dilated. Trileaflet AV appears moderately sclerotic without stenosis. Trace insufficiency. Mild MV annular calcification without stenosis. Moderate regurgitation. TV appears structurally normal with mild regurgitation. The aortic root is normal in size. The ascending aorta is normal in size. Normal pericardium. No pericardial effusion seen.
[2024-12-06] MEDS: ipratropium/albuterol 3ml nebule NEB SCH (19:09)
[2024-12-07] VITALS (30 sets, daily range): BP systolic 83–117; BP diastolic 55–76; PULSE 55–97; RESP 13–76; TEMP 97.1–98.7; O2SAT 90–98
[2024-12-07 07:00] LABS: MEAN PLATELET VOLUME 10.7 FL (7.4-10.4); RED CELL DISTRIBUTION WIDTH 14.5 % (11.5-14.5)
[2024-12-07 07:05] LABS: CREATININE 1.73 MG/DL (0.60-1.10); PRO BRAIN NATRIURETIC PEPTIDE 1498 PG/ML (0-125); TOTAL CARBON DIOXIDE 25.4 MMOL/L (24-32); eCRCL 42 ML/MIN; eGFR 40 ML/MIN
[2024-12-07] MEDS ORDERED: aspirin 81mg, enteric-coated 1 TAB TABLET.DR PO SCH (08:00)
[2024-12-07 08:53] LABS: LARGE PLATELETS FEW; PLATELET ESTIMATE NORMAL
[2024-12-07 11:16] LABS: OSMOLALITY UA 748 MOSM/K (50-1400)
[2024-12-07 14:11] LABS: ABG BASE EXCESS -2.3 mmol/L (-2.0-3.0); ABG HCO3 21.9 mmol/L (21.0-28.0); ABG OXYGEN SATURATION 97.2 % (94.0-98.0); ABG PCO2 (T) 35.1 mmHg (35.0-48.0); ABG PH (T) 7.409 (7.350-7.450); ABG PO2 (T) 87.3 mmHg (83.0-108.0); ALLEN'S TEST POSITIVE; FCOHb 0.7 % (0.5-1.5); FHHb 2.8 % (0.0-5.0); FIO2 90.0 mmHg/%; FLOW 35 L/min; FMetHb 0.2 % (0.0-1.5); FO2Hb 96.3 % (94.0-98.0); MODE HIGH FLOW; PATIENT TEMPERATURE 36.2; TOTAL HEMOGLOBIN 17.2 G/dl (13.5-17.5)
--- NOTE | 2024-12-07 15:41 | PROGRESS NOTE- Residence ---
Progress Note - Resident Providers to CC Resident Creating Document: ARIANA HERNANDEZ RES ~ Antibiotic Timeout Antibiotic Ordered?: Yes Subjective S/p cardioversion on 12/06/[address] Willson. Post cardioversion started having tachypnea and was in respiratory distress. Placed on BiPAP and also given Lasix overnight. This morning he appears to be better, currently on high- flow Salter nasal cannula. Consulted Celia cardiology RECREATION ESTABLISHMENT MANAGER to evaluate the patient. Objective Vital Signs Date Time Temp Pulse Resp B/P (MAP) Pulse Ox O2 Delivery O2 Flow Rate FiO2 12/07/24 15:24 90 18 High Flow Nasal Cannula 80 12/07/24 15:19 94 30 12/07/24 11:00 97.1 98/62 (74) Result Diagram: 12/07/24 0612 12/07/24 0612 General: Awake and Alert, mild respiratory distress, on high-flow nasal cannula. HEENT: Conjunctiva pink, Sclera clear, Mucus Membranes moist. Neck: Supple without masses and tenderness. Resp: Unlabored. Equal breath sounds bilaterally. Heart: Regular rhythm, normal S1 and S2, no rub, murmur or gallop. Abdomen: Soft and non tender no organomegaly. Normal bowel sounds x4 quadrant normoactive. No guarding or rigidity. Extremities: Normal ROM, no swelling, nontender. No cyanosis,clubbing or edema. TICKET TAKER: No gross motor or sensory abnormalities. Skin: Warm and Dry. Coagulation Studies Laboratory Tests Test 12/05/24 12:14 Prothrombin Time 10.9 SECONDS (9.0-12.0) INR International Normalized Ratio 1.1 INR Activated Partial Thromboplast Time 26 SECONDS (22-32) D-Dimer 0.30 MG/L FEU (0-0.50) D-Dimer Comment Coagulation Comments Assessment Assessment A 64 years old male patient is admitted for new onset AFib with RVR status post cardioversion and heart failure with improved EF Plan Plan AFib RVR status post cardioversion on 12/06/2024 Heart failure with improved EF 40-45% (EF 30% in 2023 per patient) Was initially given IV drainage and Cardizem in the ED, and later started on amiodarone and Cardizem drip. Amiodarone transitioned to p.o. and Cardizem drip discontinued due to soft blood pressures Currently he is in sinus with heart rate 76. Post cardioversion he developed respiratory distress and tachypnea requiring BiPAP, overnight he was given 40 Lasix x1. Shortness of breath improved and currently he is on high-flow nasal cannula DC fluids, Continue Lasix 20 IV daily monitor I's and os Currently on Coreg 6.25 p.o. b.i.d. and amiodarone 40 p.o. b.i.d. Follow up with CT chest, ABG, procalcitonin His prop worker is Dr. Claire, Bethany has been consulted, appreciate recommendations CAD status post stenting in 2023 Completed course of dual antiplatelet therapy on November 26, currently on Eliquis five p.o. b.i.d. Acute hypoxic respiratory failure Possible underlying community-acquired pneumonia likely bacterial Bilateral interstitial infiltrates and small pleural effusions CXR pulmonary vascular congestion Finished course of Zithromax x3 Continue IV ceftriaxone 1 g daily Continue breathing treatments and IV steroids CT chest initial eval shows bilateral interstitial infiltrates and small pleural effusions, follow up with final report Follow up with ABG, repeat procalcitonin Continue Lasix 20 IV daily Strict Is&Os Acute kidney injury likely secondary to renal tubular stasis Creatinine up trending, follow up with urine studies and lytes DC fluids, currently on IV Lasix Monitor BNP and if it continues to go up we will consult Nephrology Subclinical hypothyroid Elevated TSH free T4 normal limits Obstructive sleep apnea Follow up with outpatient management Code status: Full code DVT prophylaxis: Eliquis 5 mg b.i.d. Diet: Heart healthy diet Prognosis: Guarded Critical care time spent: Greater than 35 minutes Ariana Hernandez MD. IM Resident PGY-3 Date of Service: Dec 07, 2024 Billing Provider: MELODY DOMÍNGUEZ MD, ELIZABETH, RES Dec 07, 2024 15:41
--- NOTE | 2024-12-07 15:44 | RADIOLOGY REPORT ---
Procedure: CT CT CHEST Reason for study/Clinical History: SOB Comparison Study: None Exam Date: 12/07/2024 02:54 PM TECHNIQUE: Multidetector CT of the chest was performed from the lung apices to the upper abdomen with out the use of intravenous contract. Axial, coronal and sagittal multiplanar reformats were performed . Radiation Dose Information: CT Dose: CTDI volume is 18.68 mGy. Dose-length product is 648 mGy*cm The dose indicators for CT are the volume Computed Tomography (CT) Dose Index (CTDIvol) and the Dose Length Product (DLP), and are measured in units of mGy and mGy-cm, respectively. These indicators are not patient dose, but values generated from the CT scanner acquisition factors. The report includes radiation exposure data for exposures received during this examination. FINDINGS: Lower neck: Normal thyroid. Lungs: Bilateral upper lobe infiltrates. Bilateral lower lobe infiltrates. Heart/Vascular Structures: Heart size enlarged. No pericardial effusion. Coronary artery calcificatio n is present. Lymph Nodes: No adenopathy Pleura: Small bilateral pleural effusions Musculoskeletal: No acute osseous abnormality. Soft tissues: Normal. Upper abdomen: Limited portions of the upper abdomen are unremarkable. IMPRESSION: 1. Bilateral upper and lower lobe infiltrates. Small bilateral pleural effusions. Findings could rep resent pulmonary edema Radiation optimization: All CT scans at this facility use at least one of these dose optimization pippa hniques: automated exposure control mA and/or kV adjustment per patient size (includes targeted exam s where dose is matched to clinical indication) or iterative reconstruction.
--- NOTE | 2024-12-07 16:03 | CONSULTATION REPORT ---
History of Present Illness Providers to CC CC: NUVIA CLAIRE MD ~ Reason for Admit\Admit Dx: Cardiology consultation History of Present Illness Patient has past medical history is significant for anterior STEMI November 2023 with PCI of the LAD, obstructive sleep apnea, ischemic cardiomyopathy with LVEF down to 30 35%. He had a loop recorder placed and found to have new onset atrial fibrillation last week. Was started on Eliquis and his carvedilol was increased from 6.25-12.5 mg b.i.d.. He had significant shortness for breath and fatigue bringing him to the emergency department. Given his significant symptoms the on-call ring spinner, Dr. Chavez completed a ARNEL and cardioversion with successful conversion to sinus rhythm. After the procedure patient continued to have increasing shortness a breath. He required BiPAP briefly in his now on high-flow nasal cannula. Has continues increased work of breathing. Underwent a CT scan that shows bilateral small pleural effusions and pulmonary vascular congestion versus pneumonia in the bilateral upper lobes. Allergies: Coded Allergies: ibuprofen (Verified Allergy, Unknown, 12/05/24) Home Medications Home Medications Active Reported Repatha Sureclick (Evolocumab) 140 Mg/Ml Pen.injctr SQ Q2W Aspirin 81 Mg Tab.chew 1 Tab PO DAILY Escitalopram Oxalate 10 Mg Tablet 1 Tab PO DAILY Zolpidem Tartrate 5 Mg Tablet 1 Tab PO HS PRN Eliquis (Apixaban) 5 Mg Tablet 1 Tab PO BID Aldactone (Spironolactone) 25 Mg Tablet 1 Tab PO DAILY 30 Days Carvedilol 12.5 Mg Tablet 1 Tab PO BID Atorvastatin Calcium 40 Mg Tablet 1 Tab PO DAILY Past Medical History Medical History Comment New onset atrial fibrillation Anterior STEMI November 27, 2023 with residual 50% RCA stenosis Ischemic cardiomyopathy with LVEF down to 30-35% Obstructive sleep apnea Past Surgical History Surgical History Comment PCI as above Past Social History Social History Comment Occasional alcohol. No drugs. Lives with . Physical Exam Last Vital Signs Recorded: RN Vital Signs have been reviewed: Yes, Temperature: 97.1, Source: Oral, Heart Rate: 90, Respiratory Rate: 18, BP: 98/62, Pulse Oximetry: 94, Weight: 90.910 Physical Exam General: Awake, alert, oriented. No apparent distress Neck: Supple. Normal range of motion. Respiratory: On high-flow nasal cannula at 90% FiO2. Lungs clear and diminished in the bases. No rhonchi. No wheezes. No accessory muscle use. Cardiovascular: Regular rate and rhythm. S1-S2. No murmur, gallop, rub. Gastrointestinal: Abdomen is soft. Nontender to palpation. Bowel sounds present. Extremities: No lower extremity edema, cyanosis or clubbing. Neurologic: Alert and oriented x4. Nonfocal Psychiatric: Normal mood and affect. Skin: Normal color. Warm and dry. Review of Systems Constitutional: Reports: weakness; Denies: chills, fever Eyes: Reports: no symptoms reported ENT: Reports: no symptoms reported Respiratory: Reports: cough (Nonproductive), shortness of breath, SOB with exertion Cardiovascular: Reports: chest pain (Right chest), palpitations (Resolved); Denies: left arm pain, diaphoresis, lightheadedness, syncope Gastrointestinal: Reports: abdomen distended (Improved); Denies: abdominal pain, nausea, vomiting Genitourinary: Reports: no symptoms reported Neurological: Reports: no symptoms reported Musculoskeletal: Reports: no symptoms reported Integumentary: Reports: no symptoms reported Allergic/Immunologic: Reports: no symptoms reported Hematologic/Lymphatic: Reports: no symptoms reported Endocrine: Reports: no symptoms reported Psychiatric: Reports: no symptoms reported Results EKG EKG EKG December 05, 2024 at 11:03 a.m. shows atrial fibrillation with rapid ventricular response rate of 127. Low voltage. Echocardiogram Echocardiogram Conclusion There is moderate LV systolic dysfunction present. Overall estimated LVEF is about 40-45%. Normal LV size and wall thickness. Overall systolic function is moderately reduced. There is severe hypokinesia of the anteroseptal wall distal inferior wall. RV is normal size and function. Mild MV annular calcification without stenosis. Moderate regurgitation. TV appears structurally normal with mild regurgitation. Normal PV without stenosis, physiologic insufficiency. Normal pericardium. No effusion. Dictated by:PAULA CHAVEZ MD Dictation date and time:12/06/241750 Electronically Signed by: PAULA CHAVEZ MD Date and Time: 12/06/241750 Other Other Procedure: CT CT CHEST Reason for study/Clinical History: SOB Comparison Study: None Exam Date: 12/07/2024 02:54 PM TECHNIQUE: Multidetector CT of the chest was performed from the lung apices to the upper abdomen without the use of intravenous contract. Axial, coronal and sagittal multiplanar reformats were performed. Radiation Dose Information: CT Dose: CTDI volume is 18.68 mGy. Dose-length product is 648 mGy*cm The dose indicators for CT are the volume Computed Tomography (CT) Dose Index (CTDIvol) and the Dose Length Product (DLP), and are measured in units of mGy and mGy-cm, respectively. These indicators are not patient dose, but values generated from the CT scanner acquisition factors. The report includes radiation exposure data for exposures received during this examination. FINDINGS: Lower neck: Normal thyroid. Lungs: Bilateral upper lobe infiltrates. Bilateral lower lobe infiltrates. Heart/Vascular Structures: Heart size enlarged. No pericardial effusion. Coronary artery calcification is present. Lymph Nodes: No adenopathy Pleura: Small bilateral pleural effusions Musculoskeletal: No acute osseous abnormality. Soft tissues: Normal. Upper abdomen: Limited portions of the upper abdomen are unremarkable. IMPRESSION: 1. Bilateral upper and lower lobe infiltrates. Small bilateral pleural effusions. Findings could represent pulmonary edema Radiation optimization: All CT scans at this facility use at least one of these dose optimization techniques: automated exposure control mA and/or kV adjustment per patient size (includes targeted exams where dose is matched to clinical indication) or iterative reconstruction. Electronically Signed by:WILLOW OROZCO MD Date & Time: 12/07/241540 Dictated by: WILLOW OROZCO MD Dictation date and time: 12/07/241540 Diagram Lab Result Diagram: 12/07/24 0612 12/07/24 0612 Assessment/Plan Additional Plan Patient presents secondary to weakness, shortness for breath, palpitations. The following is his problem list: Atrial fibrillation with rapid ventricular response Status post direct current cardioversion with Dr. Velasco (foreign collection clerk ring spinner) yesterday. Currently maintaining sinus rhythm --continue amiodarone 400 mg b.i.d. for now. We will continue for one week. --continue rate control with carvedilol 6.125 mg b.i.d.. We will up titrate as needed. --continue Eliquis 5 mg b.i.d. --outpatient referral for electrophysiology for ablation Heart failure with mid-range ejection fraction Ischemic cardiomyopathy Nonrheumatic mitral regurgitation, moderate --continue carvedilol 6.25 mg b.i.d. --given borderline blood pressure we will consider losartan tomorrow. Previous MIKY inhibitor cough. --recommend Lasix IV to keep euvolemic. Strict intake and output measurements. History of coronary artery disease status post PCI of the LAD November 2023 --stop aspirin as he will be on oral anticoagulation --continue Repatha Acute kidney injury --monitoring Acute respiratory failure Likely combination of etiologies of community-acquired pneumonia and CHF --antibiotic/steroid management per hospitalist --Lasix as above History of obstructive sleep apnea Case reviewed with Dr. Amanuel Claire who is in agreement with this plan. Supervising MD Supervising Physician: RENAN Tavares NP Dec 07, 2024 16:03
[2024-12-08] VITALS (23 sets, daily range): BP systolic 103–118; BP diastolic 66–77; PULSE 74–97; RESP 15–28; TEMP 97.2–98.6; O2SAT 27–97
[2024-12-08 05:46] LABS: MEAN PLATELET VOLUME 10.3 FL (7.4-10.4); RED CELL DISTRIBUTION WIDTH 14.3 % (11.5-14.5)
[2024-12-08 05:50] LABS: CREATININE 1.51 MG/DL (0.60-1.10); TOTAL CARBON DIOXIDE 25.3 MMOL/L (24-32); eCRCL 48 ML/MIN; eGFR 47 ML/MIN
[2024-12-08] MEDS: furosemide 10 MG/1 ML 10ml inj IV SCH (08:27)
--- NOTE | 2024-12-08 09:41 | PROGRESS NOTE ---
Progress Note Cardiology Providers to CC ~ Subjective Subjective Patient states improvement in shortness for breath, similar to yesterday afternoon when I saw him. His oxygen has been weaned down and he is now on 20 L and 70% FiO2 satting well. He is sitting up on the side of the bed talking with his . Maintaining sinus rhythm. Blood pressure remains well controlled. Objective Result Diagram: 12/08/24 0504 12/08/24 0504 Objective General: Awake, alert, oriented. No apparent distress Respiratory: Lungs are bilateral crackles in the bases and some expiratory wheezing on the right base. Chest: Normal shape and size. No accessory muscle use. Cardiovascular: Regular rate and rhythm. S1-S2. No murmur, gallop, rub. Extremities: No lower extremity edema, cyanosis or clubbing. Neurologic: Alert and oriented x4. Nonfocal Psychiatric: Normal mood and affect. Skin: Normal color. Warm and dry. Coagulation Studies Laboratory Tests Test 12/05/24 12:14 Prothrombin Time 10.9 SECONDS (9.0-12.0) INR International Normalized Ratio 1.1 INR Activated Partial Thromboplast Time 26 SECONDS (22-32) D-Dimer 0.30 MG/L FEU (0-0.50) D-Dimer Comment Coagulation Comments Problem\Assessment\Plan Additional Plan Patient presents secondary to weakness, shortness for breath, palpitations. The following is his problem list: Atrial fibrillation with rapid ventricular response Status post direct current cardioversion with Dr. Velasco (movement education specialist liner checker) yesterday. Currently maintaining sinus rhythm --continue amiodarone 400 mg b.i.d. for now. We will continue for one week. --continue rate control with carvedilol 6.125 mg b.i.d.. We will up titrate as needed. --continue Eliquis 5 mg b.i.d. --outpatient referral for electrophysiology for ablation Heart failure with mid-range ejection fraction Ischemic cardiomyopathy Nonrheumatic mitral regurgitation, moderate --continue carvedilol 6.25 mg b.i.d. --add losartan 12.5 mg b.i.d.. Previous MIKY inhibitor cough. 12/08/24: Diuresed 4 L and fluid volume-1050 mL yesterday. Received Lasix 20 mg this morning. We will order one time dose for 20 mg this afternoon. History of coronary artery disease status post PCI of the LAD November 2023 --stop aspirin as he will be on oral anticoagulation --continue Repatha Acute kidney injury --monitoring Acute respiratory failure Likely combination of etiologies of community-acquired pneumonia and CHF --antibiotic/steroid management per hospitalist --Lasix as above History of obstructive sleep apnea --does not currently use CPAP and he is awaiting appointment to be fitted. Case reviewed with Dr. Amanuel Claire who is in agreement with this plan. For any further cardiology needs please contact Dr. Rock directly. Otherwise, I will return on November. Supervising Physician: RENAN Tavares NP Dec 08, 2024 09:41
--- NOTE | 2024-12-08 16:29 | PROGRESS NOTE- Residence ---
Progress Note - Resident Providers to CC Resident Creating Document: ARIANA HERNANDEZ RES ~ Antibiotic Timeout Antibiotic Ordered?: Yes Subjective Patient seen and examined at bedside. No acute overnight events noted. He feels better today, family at bedside. Oxygen requirement down to 11 L high- flow. No new concerns or complaints. Objective Vital Signs Date Time Temp Pulse Resp B/P (MAP) Pulse Ox O2 Delivery O2 Flow Rate FiO2 12/08/24 15:56 95 11.0 12/08/24 15:56 86 18 High Flow [place] 12/08/24 15:45 69 12/08/24 11:00 97.6 118/74 (89) Result Diagram: 12/08/24 0504 12/08/24 0504 General: Awake and Alert, mild respiratory distress, on high-flow nasal cannula. HEENT: Conjunctiva pink, Sclera clear, Mucus Membranes moist. Neck: Supple without masses and tenderness. Resp: Unlabored. Diffuse crackles bilaterally Heart: Regular rhythm, normal S1 and S2, no rub, murmur or gallop. Abdomen: Soft and non tender no organomegaly. Normal bowel sounds x4 quadrant normoactive. No guarding or rigidity. Extremities: Normal ROM, no swelling, nontender. No cyanosis,clubbing or edema. GOLF COURSE LABORER: No gross motor or sensory abnormalities. Skin: Warm and Dry. Coagulation Studies Laboratory Tests Test 12/05/24 12:14 Prothrombin Time 10.9 SECONDS (9.0-12.0) INR International Normalized Ratio 1.1 INR Activated Partial Thromboplast Time 26 SECONDS (22-32) D-Dimer 0.30 MG/L FEU (0-0.50) D-Dimer Comment Coagulation Comments Assessment Assessment A 64 years old male patient is admitted for new onset AFib with RVR status post cardioversion and heart failure with improved EF Plan Plan AFib RVR status post cardioversion on 12/06/2024 Heart failure with improved EF 40-45% (EF 30% in 2023 per patient) Was initially given IV drainage and Cardizem in the ED, and later started on amiodarone and Cardizem drip. Amiodarone transitioned to p.o. and Cardizem drip discontinued due to soft blood pressures Currently he is in sinus with heart rate 76. Post cardioversion he developed respiratory distress and tachypnea requiring BiPAP, overnight he was given 40 Lasix x1. Shortness of breath improved and currently he is on high-flow nasal cannula DC fluids, Continue Lasix 20 IV daily monitor I's and os Currently on Coreg 6.25 p.o. b.i.d. and amiodarone 40 p.o. b.i.d. Follow up with CT chest, ABG, procalcitonin His construction recruiter is Dr. Claire, Bethany has been consulted, appreciate recommendations 12/08/2024 Cardiology recommended to continue amiodarone 400 b.i.d. x1 week and Coreg 6.125 b.i.d. started losartan 12.5 p.o. daily. Anticoagulation with Eliquis and he will need outpatient EP consult for ablation CAD status post stenting in 2023 Completed course of dual antiplatelet therapy on November 26, currently on Eliquis five p.o. b.i.d. Acute hypoxic respiratory failure Possible underlying community-acquired pneumonia likely bacterial Bilateral interstitial infiltrates and small pleural effusions CXR pulmonary vascular congestion Finished course of Zithromax x3 Continue IV ceftriaxone 1 g daily Continue breathing treatments and IV steroids CT chest initial eval shows bilateral interstitial infiltrates and small pleural effusions Follow up with ABG, repeat procalcitonin Continue Lasix 20 IV daily Strict Is&Os 12/08/2024 Decreased steroids to 40 IV b.i.d. Repeat ABG and procalcitonin within normal limits Acute kidney injury likely secondary to renal tubular stasis Creatinine up trending, follow up with urine studies and lytes DC fluids, currently on IV Lasix Monitor BNP and if it continues to go up we will consult Nephrology 12/08/2024 Creatinine downtrending 1.5 today Subclinical hypothyroid Elevated TSH free T4 normal limits Obstructive sleep apnea Follow up with outpatient management Code status: Full code DVT prophylaxis: Eliquis 5 mg b.i.d. Diet: Heart healthy diet Prognosis: Guarded Ariana Hernandez MD. IM Resident PGY-3 Date of Service: Dec 08, 2024 Billing Provider: MELODY DOMÍNGUEZ MD, ELIZABETH, RES Dec 08, 2024 16:29
[2024-12-08] MEDS: methylPREDNISolone sod succ/PF 40mg inj. IV SCH (20:14)
[2024-12-08 23:41] LABS: CREATININE,URINE RANDOM 140.0 MG/DL
[2024-12-09] VITALS (10 sets, daily range): BP systolic 102–111; BP diastolic 68–75; PULSE 80–97; RESP 18–30; TEMP 97.3–97.4; O2SAT 91–94
[2024-12-09 06:58] LABS: CREATININE 1.31 MG/DL (0.60-1.10); TOTAL CARBON DIOXIDE 25.9 MMOL/L (24-32); eCRCL 55 ML/MIN; eGFR 55 ML/MIN
[2024-12-09 06:59] LABS: MEAN PLATELET VOLUME 10.8 FL (7.4-10.4); RED CELL DISTRIBUTION WIDTH 14.8 % (11.5-14.5)
[2024-12-09] MEDS: ESCITALOPRAM 10 mg tablet 10 MG TABLET PO SCH (08:23)
[2024-12-09 08:34] LABS: LARGE PLATELETS FEW; PLATELET ESTIMATE NORMAL
[2024-12-09] MEDS ORDERED: CEFD300C3 PO (12:49)
[2024-12-09] MEDS ORDERED: CARV6.253 PO (12:49)
[2024-12-09] MEDS ORDERED: LACT1CAP26 PO (12:49)
[2024-12-09] MEDS ORDERED: PRED10TA23 PO (12:49)
[2024-12-09] MEDS ORDERED: AMIO200T76 PO (12:49)
[2024-12-09] MEDS ORDERED: LOSA25TA41 PO (12:49)
[2024-12-09] MEDS ORDERED: FURO-150 PO (12:49)
[2024-12-09] MEDS ORDERED: IPRA3AMP9 NEB (12:49)
--- NOTE | 2024-12-09 17:56 | DISCHARGE SUMMARY-Residence ---
Discharge Summary Providers to CC Resident Creating Document: RENEE HERNANDEZ RES ~ Discharge Summary Admission Diagnosis: atrial fibrillation with RVR Hospital Course DATE OF ADMISSION: 12/05/2024 DATE OF DISCHARGE: 12/09/2024 Hospital course same as mentioned discharge summary. Discharge Diagnosis\Comment: AFib RVR status post cardioversion on 12/06/2024 Acute on chronic Heart failure with improved EF 40-45% (EF 30% in 2023 per patient) CAD status post stenting in 2023, completed course of DOACs on November 26 dayan guthriely on aspirin 81 p.o. daily and Eliquis five p.o. b.i.d. Acute hypoxic respiratory failure Possible underlying community-acquired pneumonia likely bacterial Bilateral interstitial infiltrates and small pleural effusions Acute kidney injury likely secondary to renal tubular stasis Subclinical hypothyroid Obstructive sleep apnea Operations\Procedures: Cardioversion by Dr. Willson on 12/06/2024 Consultants: Dr Demetris Claire Complications: None Condition on DC: Stable New Medications: Cefdinir* (Cefdinir*) 300 Mg Capsule 1 CAP PO Q12H for 3 Days, #6 CAP Furosemide (Lasix) 20 Mg Tablet 40 MG PO DAILY for 30 Days, #60 TAB Lactobacillus Rhamnosus (Culturelle) 10 Billion Cell Capsule 1 CAP PO DAILY for 30 Days, #30 CAP 0 Refills Prednisone (Prednisone) 10 Mg Tablet 0 PO DAILY, #42 TAB Take 3 daily x3days 2 daily x2 days 1 daily x1 days 1/2 daily x1 days then STOP Amiodarone Hcl (Cordarone) 200 Mg Tablet 400 MG PO BID for 30 Days, #60 TAB 400 b.i.d. until December 13 and then 200 b.i.d. x2 weeks and then 200 daily Carvedilol (Carvedilol) 6.25 Mg Tablet 6.25 MG PO BID, #60 TAB Ipratropium/Albuterol Sulfate (IPRAT-ALBUT 0.5-3(2.5) MG/3 ML nebule) 0.5 Mg-3 Mg (2.5 Mg Base)/3 Ml Ampul.neb 3 ML NEB Q4HRT PRN for SOB or wheezing, #1 INHALER Losartan Potassium (Losartan Potassium) 25 Mg Tablet 12.5 MG PO DAILY, #30 TAB Continued Medications: Apixaban (Eliquis) 5 Mg Tablet 1 TAB PO BID Aspirin (Aspirin) 81 Mg Tab.chew 1 TAB PO DAILY Atorvastatin Calcium (Atorvastatin Calcium) 40 Mg Tablet 1 TAB PO DAILY Escitalopram Oxalate (Escitalopram Oxalate) 10 Mg Tablet 1 TAB PO DAILY Evolocumab (Repatha Sureclick) 140 Mg/Ml Pen.injctr SQ Q2W Spironolactone (Aldactone) 25 Mg Tablet 1 TAB PO DAILY for 30 Days, #30 TAB 0 Refills Zolpidem Tartrate (Zolpidem Tartrate) 5 Mg Tablet 1 TAB PO HS PRN for insomnia Discontinued Medications: Carvedilol (Carvedilol) 12.5 Mg Tablet 1 TAB PO BID Discharge Summary: As per HPI per TRAN TEJEDA, RES: A 64 years old male patient with past medical history of atrial fibrillation, CAD, obstructive sleep apnea presented to ED with chief complaints of chest discomfort, weakness and fatigue that started today morning when he was resting at the home. He states that he has a loop recorder and he was called by Dr. Claire's office on Saturday and told he was in atrial fibrillation. He started taking Eliquis from past 4 days. Patient denies chest pain, shortness of breath, dizziness, syncope, abdominal pain, loss of consciousness, arthralgias, fevers, chills, nausea, vomitings. Hospital course: On further evaluation he was found to be in AFib RVR heart rate 140 was started on IV Cardizem and amiodarone drip. Was cardioverted on 12/06/2024. Amiodarone drip discontinued and transitioned to p.o. amiodarone 400 b.i.d. x1 week and then 200 b.i.d. x2 weeks and then 200 daily. Anticoag ulation with Eliquis five b.i.d.. Post cardioversion he developed acute hypoxic respiratory failure requiring high-flow nasal cannula. Was started on IV antibiotics ceftriaxone and Zithromax and breathing treatments, steroids. Chest x-ray showed bilateral interstitial infiltrates and small pleural effusion. He also had acute kidney injury likely secondary to renal tubular stasis, creatinine has been improving and is downtrending creatinine today 1.3. Echo was done which showed an EF of 40-45%. He was started on GDMT home medication Coreg was continued was given IV Lasix and losartan 12.5 p.o. daily was started. He had good output with IV Lasix, his breathing improved and oxygen requirement was coming down. It has been tapered and today he is saturations are in the normal range on room air. He improved significantly, his hospital course is uncomplicated he is hemodynamically stable on the day of discharge and his physical exam is as follows: General: Awake and Alert, no acute distress, saturating well on room air HEENT: Conjunctiva pink, Sclera clear, Mucus Membranes moist. Neck: Supple without masses and tenderness. Resp: Unlabored. Equal Bilateral breath sounds Heart: Regular rhythm, normal S1 and S2, no rub, murmur or gallop. Abdomen: Soft and non tender no organomegaly. Normal bowel sounds x4 quadrant normoactive. No guarding or rigidity. Extremities: Normal ROM, no swelling, nontender. No cyanosis,clubbing or edema. GUIDE ALPINE: No gross motor or sensory abnormalities. Skin: Warm and Dry. Discharge medications can be found above. Patient is being discharged with the following advice: Follow up with Dr. Claire your hydrographic engineer in two weeks. Continue amiodarone 400 b.i.d. until December 13 and then 200 b.i.d. x2 weeks and then 200 daily. Continue anticoagulation with Eliquis five b.i.d.. Continue antiplatelets aspirin and statins. Continue Lasix 40 p.o. daily. Added new medication for heart failure with reduced EF losartan 12.5 p.o. b.i.d.. You will require outpatient referral for electrophysiology for ablation of AFib. Continue steroids and taper as prescribed. Use breathing treatments as needed. Take cefdinir antibiotic for three more days and then stop. If condition worsens call 911 or go to the nearest ER immediately. CT chest: IMPRESSION: 1. Bilateral upper and lower lobe infiltrates. Small bilateral pleural effusions. Findings could represent pulmonary edema Echo: Conclusion There is moderate LV systolic dysfunction present. Overall estimated LVEF is about 40-45%. Normal LV size and wall thickness. Overall systolic function is moderately reduced. There is severe hypokinesia of the anteroseptal wall distal inferior wall. RV is normal size and function. Mild MV annular calcification without stenosis. Moderate regurgitation. TV appears structurally normal with mild regurgitation. Normal PV without stenosis, physiologic insufficiency. Normal pericardium. No effusion. *Problems/Diagnosis: (1) Atrial fibrillation Status: Acute Total Time Spent on D/C: > 30 Minutes Date of Service: Dec 09, 2024 Billing Provider: MELODY DOMÍNGUEZ MD Problem Qualifiers (1) Atrial fibrillation: Atrial fibrillation type: persistent (not longstanding) Qualified Codes: I48.19 - Other persistent atrial fibrillation RENEE HERNANDEZ, RES Dec 09, 2024 17:55
[2024-12-11] MEDS ORDERED: BUDE10.26 INH (07:49)
[2024-12-11] MEDS ORDERED: ALBU8HFA PO (07:49)
== END 2024-12-09 14:30 | disposition home or self-care (01) | DRG 193 ==
LOC: ER 07:10 → ED HOLD 10:01 → PCU 3S 23:43
PROVIDERS: ADMIT Family Medicine; ATTEND Family Medicine
PROC: 5A2204Z Restoration of Cardiac Rhythm, Single (ICD-10-PCS; principal; 2024-12-06)
PROC: 5A0935A Assistance with Respiratory Ventilation, Less than 24 Consecutive Hours, High Flow/Velocity Cannula (ICD-10-PCS; 2024-12-06)
PROC: 5A09357 Assistance with Respiratory Ventilation, Less than 24 Consecutive Hours, Continuous Positive Airway Pressure (ICD-10-PCS; 2024-12-06)
PROC: 5A09357 Assistance with Respiratory Ventilation, Less than 24 Consecutive Hours, Continuous Positive Airway Pressure (ICD-10-PCS; 2024-12-07)
PROC: 5A0945A Assistance with Respiratory Ventilation, 24-96 Consecutive Hours, High Flow/Velocity Cannula (ICD-10-PCS; 2024-12-07)
DX: J15.9 Unspecified bacterial pneumonia (principal); I50.23 Acute on chronic systolic (congestive) heart failure; J96.01 Acute respiratory failure with hypoxia; N17.0 Acute kidney failure with tubular necrosis; I48.19 Other persistent atrial fibrillation; Z20.822 Contact with and (suspected) exposure to COVID-19; G47.33 Obstructive sleep apnea (adult) (pediatric); I25.5 Ischemic cardiomyopathy; I34.0 Nonrheumatic mitral (valve) insufficiency; E03.9 Hypothyroidism, unspecified; I25.10 Atherosclerotic heart disease of native coronary artery without angina pectoris; Z79.899 Other long term (current) drug therapy; Z79.01 Long term (current) use of anticoagulants; I25.2 Old myocardial infarction; Z79.82 Long term (current) use of aspirin
CPT/HCPCS: 36415; 36600; 71045; 71250; 80048; 80053; 80061; 80305; 81001; 82570; 82803; 83036; 83605; 83735; 83880; 83930; 83935; 84100; 84133; 84145; 84300; 84439; 84443; 84484; 85008; 85018; 85025; 85379; 85610; 85730; 87081; 87207; 87811; 93005; 93306; 93312; 93325; 94640; 94660; 94760; 96374; 96375; 96376; 99291; A4615; A4620; G0378; J0282; J0456; J0696; J1160; J1938; J2250; J2274; J2919; J3490; J7030; J7040; J7050; J7512